=== PATIENT | male | born 1970 | race Hispanic/Latino ===

== ENCOUNTER → 2018-09-04 | Outpatient (REF) | payer OTHER ==
[~2018-09-04] MED LIST: CITALOPRAM10 MG PO; METOPROLOL25 M1 OR; PROTONIX40 MG OR; TEGRETOL OR; TOBRAMYCIN0.3 % OP; TRILEPTAL300 MG OR; XANAX XR0.5 MG OR
== END | disposition home or self-care (01) | DRG 443 ==
LOC: ULTRASND 08:36
PROVIDERS: ATTEND Family Medicine
DX: K76.0 Fatty (change of) liver, not elsewhere classified (principal)

== ENCOUNTER 2020-12-01 09:27 | Emergency (ER) | payer OTHER ==
[~2020-12-01] VITALS: Ht 177.8 cm; Wt 100.0 kg
[2020-12-01] MEDS ORDERED: FAMOTIDINE20 M1 PO (10:32)
[2020-12-01] MEDS ORDERED: CARVEDILOL6.25 MG PO (10:32)
[2020-12-01 10:38] LABS: ALBUMIN 4.1 g/dL (3.2-5.0); ALKALINE PHOSPHATASE 74 u/l (38-126); ANION GAP 12 (6-22 (CALC)); BUN 11 mg/dL (9-20); BUN/CREATININE RATIO 13 (12-20 (CALC)); CARBON DIOXIDE 29 mmol/l (22-30); CHLORIDE 100 mmol/l (95-108); CREATININE 0.8 mg/dL (0.7-1.3); GFR > 60 ML/MIN (>=60 (CALC)); GFR FOR AFR.AMER. > 60 ML/MIN (>=60 (CALC)); SODIUM 136 mmol/l (137-146); TOTAL PROTEIN 7.6 g/dL (6.3-8.2)
[2020-12-01 10:40] LABS: HEMATOCRIT 48.5 % (39.0-50.0); HEMOGLOBIN 16.7 g/dl (14.0-18.0); IMMATURE GRANULOCYTES 0.2 % (0.0-5.0); MEAN CELL VOLUME 89.3 fL CALC (80.0-100.0); MEAN CORPUSCULAR HGB 30.8 pG CALC (26.0-32.0); MEAN CORPUSCULAR HGB CONC 34.4 g/dL CAL (32.0-36.0); NEUT# 5.62 thou/uL (1.82-7.42); RED BLOOD COUNT 5.43 mill/uL (4.70-6.10); RED CELL DISTRI WIDTH 12.9 % (11.5-15.5)
[2020-12-01 10:48] LABS: MYOGLOBIN 30 ng/mL (0 - 121)
[2020-12-01 10:50] LABS: BILIRUBIN, TOTAL 0.9 mg/dL (0.0-1.4); SGOT/AST 36 u/l (17-59)
[2020-12-01 12:14] LABS: URINE BILIRUBIN - DIPSTICK NEGATIVE (NEGATIVE); URINE BLOOD DIPSTICK NEGATIVE (NEGATIVE); URINE COLOR YELLOW; URINE GLUCOSE - DIPSTICK NEGATIVE (NEGATIVE); URINE KETONE NEGATIVE (NEGATIVE); URINE LEUK ESTERASE NEGATIVE (NEGATIVE); URINE PH 7.5 (4.5-8.0); URINE PROTEIN - DIPSTICK NEGATIVE (NEG-TRACE); URINE UROBILINOGEN - DIPSTICK 0.2 E.U./dL (0.2)
[2020-12-01 12:19] LABS: URINE NITRITE - DIPSTICK NEGATIVE (Negative)
[2020-12-01] MEDS ORDERED: CLONIDINE0.1 MG PO (12:33)
[2020-12-01 12:47] VITALS: BP 141/76
== END 2020-12-01 12:57 | disposition home or self-care (01) | DRG 305 ==
LOC: ED 09:27
PROVIDERS: Emergency Medicine
DX: I10 Essential (primary) hypertension (principal); E11.9 Type 2 diabetes mellitus without complications; G40.909 Epilepsy, unspecified, not intractable, without status epilepticus; K21.9 Gastro-esophageal reflux disease without esophagitis; Z20.822 Contact with and (suspected) exposure to COVID-19